=== PATIENT | female | born 1970 | race African-American/Black ===

== ENCOUNTER 2016-10-31 21:19 | Emergency (ER) | payer OTHER ==
[2016-10-31] MEDS ORDERED: NAPROXEN (21:31)
[2016-10-31] MEDS ORDERED: IBUPROFEN (21:32)
[2016-10-31 21:49] LABS: URINE SOURCE CLEAN CATCH
[2016-10-31 21:52] LABS: URINE APPEARANCE SL CLOUDY; URINE BILIRUBIN NEG (NEG); URINE BLOOD 3+ (NEG); URINE COLOR YELLOW; URINE GLUCOSE NEG (NORM); URINE KETONE TRACE (NEG); URINE LEUKOCYTE ESTERASE 3+ (NEG); URINE NITRATE POS (NEG); URINE PROTEIN 1+ (NEG); URINE SPECIFIC GRAVITY 1.015 (1.003-1.035)
[2016-10-31 21:55] LABS: MICRO INDICATED? YES
[2016-10-31 21:57] LABS: CULTURE INDICATED? YES; URINE BACTERIA 4+ (NEG); URINE RBC 100-200 /[HPF] (0-2); URINE SQUAMOUS EPITHELIAL CELL FEW /[HPF]; URINE WBC INNUM /[HPF] (0-5)
[2016-10-31 22:36] LABS: BASOPHIL% 0.1 % (0-2.5); EOSINOPHIL% 0.2 % (0.0-7.0); HEMATOCRIT 35.8 % (35.0-45.0); HEMOGLOBIN 11.6 gm/dL (12.0-16.0); LYMPHOCYTE# 0.7 X10e3 (1.0-3.5); LYMPHOCYTE% 10.2 % (17.0-45.0); MEAN CELL VOLUME 86.7 FL (83-96); MEAN CORPUSCULAR HEMOGLOBIN 28.2 PG (28-34); MEAN CORPUSCULAR HGB CONC 32.5 g/dL (30-36); MEAN PLATELET VOLUME 7.9 FL (6.5-11.5); MONOCYTE# 0.1 X10e3 (0-1.0); MONOCYTE% 1.3 % (3.0-12.0); NEUTROPHIL# 6.2 X10e3 (1.5-7.1); NEUTROPHIL% 88.2 % (40-75); PLATELET COUNT 227 X10e3 (140-420); RED BLOOD COUNT 4.13 X10e (3.90-5.30); RED CELL DISTRIBUTION WIDTH 13.7 % (11.0-15.5)
[2016-10-31 22:45] LABS: DIFF IND NO
[2016-10-31 23:02] LABS: ALBUMIN SERUM 4.4 g/dL (3.5-5.0); BILIRUBIN, DIRECT 0.1 mg/dL (0.0-0.2); BILIRUBIN,INDIRECT 0.7 mg/dL (0.0-0.9); BILIRUBIN,TOTAL 0.8 mg/dL (0.2-2.0); CALCIUM SERUM 9.1 mg/dL (8.4-10.2); GLOM FILT RATE Estimated 77.7 mL/min (>60); POTASSIUM 3.6 mmol/L (3.5-5.1); PROTEIN TOTAL SERUM 7.7 g/dL (6.0-8.3)
[2016-11-03 20:11] LABS: CHLAMYDIA TRACH Not Detected (Not Detected); N GONOR Not Detected (Not Detected)
== END 2016-10-31 23:32 | disposition home or self-care (01) ==
LOC: SED 21:19
PROVIDERS: Student in an Organized Health Care Education/Training Program
DX: N12 Tubulo-interstitial nephritis, not specified as acute or chronic (principal)
CPT/HCPCS: 36415; 80048; 80076; 81003; 84703; 85025; 87086; 87088; 87186; 87491; 87591; 87808; 87905; 96374; 96375; 99284; J0696; J1885; J2405

== ENCOUNTER 2016-11-07 19:42 | Emergency (ER) | payer OTHER ==
[~2016-11-07 19:42] MED LIST: IBUPROFEN; NAPROXEN
[2016-11-07] MEDS ORDERED: BACTRIM DS TAB1 EACH PO (20:01)
== END 2016-11-07 20:46 | disposition home or self-care (01) ==
LOC: SED 19:42
DX: R11.0 Nausea (principal); R51 Headache; T37.0X5A Adverse effect of sulfonamides, initial encounter; Z90.710 Acquired absence of both cervix and uterus; Z98.51 Tubal ligation status; Z88.2 Allergy status to sulfonamides
CPT/HCPCS: 96372; 99284; J0696

== ENCOUNTER 2016-11-17 15:25 | Emergency (ER) | payer OTHER ==
--- NOTE | ~2016-11-17 | CT4 ---
[facility] A Service of [facility] RADIOLOGY TEXT RESULTS PATIENT: DESIRAE BARLOW LOCATION: SED : 68 UNIT #: [id number] AGE: [address]: DONNIE ANTHONY SEX: F ORDER DR: [id number] [place] [id number] E MR#: [id number] #: [id number] NAME: DESIRAE BARLOW : 1970 SEX: F STUDY DATE/TIME: 11/17/2016 17:14 UNIT: SED ROOM: STUDY DESCRIPTION: CT Abd and Pelv Wo Cont Attending Physician: Donnie Anthony Ordering Physician: Donnie Anthony Primary Care Physician: No Primary Care Physician MEDICAL IMAGING REPORT This report is preliminary unless electronic signature is present. EXAM CT abdomen and pelvis without contrast 11/17/2016 HISTORY 46-year-old female with abdominal pain and hematuria for 3 weeks. COMPARISON None. TECHNIQUE Helical scan performed through the abdomen and pelvis without IV contrast. Coronal and sagittal reformatted images. This CT exam was performed with one or more of the following radiation dose reduction techniques: automatic control, adjustment of mA and/or kV according to patient size, and iterative reconstruction. FINDINGS Visualized lung bases are unremarkable. Multiple small hypoattenuating lesions throughout the liver, which are too small to characterize, but likely represent hepatic cysts. The spleen, pancreas, gallbladder, both adrenal glands, and both kidneys are within expected limits. No urinary tract stones or hydronephrosis. Abdominal aorta normal in course and caliber. Small bowel is unremarkable without obstruction. Appendix is normal. Colon unremarkable. Small fat-containing ventral abdominal wall hernia just above the umbilicus in the midline. No free fluid or free air. Urinary bladder unremarkable. Uterus surgically absent. No free pelvic fluid. No acute bony abnormality. IMPRESSION 1. No acute abdominal or pelvic findings. [facility] A Service [facility] RADIOLOGY TEXT RESULTS PATIENT: DESIRAE BARLOW LOCATION: SED : 68 UNIT #: [id number] AGE: [address]: DONNIE ANTHONY SEX: F ORDER DR: 2. Negative for urinary tract stones or hydronephrosis. 3. Normal appendix. 4. Hysterectomy. 5. Small fat-containing ventral abdominal wall hernia just above the umbilicus in the midline. Dictated by... Enio Benson M.D. THIS IS AN ELECTRONICALLY VERIFIED REPORT Enio Benson M.D. at 11/18/2016 9:59 AM [facility]/[place] TD: 11/18/2016 01:11 JOB #: [id number] MEDICAL IMAGING REPORT Page 1 of 1
[~2016-11-17 15:25] MED LIST changes: +BACTRIM DS TAB1 EACH PO
[2016-11-17] MEDS ORDERED: NO MEDICATIONS (15:38)
[2016-11-17 16:33] LABS: URINE SOURCE CLEAN CATCH
[2016-11-17 16:35] LABS: URINE APPEARANCE CLEAR; URINE BILIRUBIN NEG (NEG); URINE BLOOD 1+ (NEG); URINE COLOR YELLOW; URINE GLUCOSE NEG (NORM); URINE KETONE NEG (NEG); URINE LEUKOCYTE ESTERASE 1+ (NEG); URINE NITRATE NEG (NEG); URINE PROTEIN NEG (NEG); URINE SPECIFIC GRAVITY <=1.005 (1.003-1.035); URINE UROBILINOGEN 0.2 MG/DL (NORM)
[2016-11-17 16:38] LABS: MICRO INDICATED? YES
[2016-11-17 16:42] LABS: URINE BACTERIA NEG (NEG); URINE RBC 0-2 /[HPF] (0-2)
[2016-11-17 16:43] LABS: URINE SQUAMOUS EPITHELIAL CELL OCCAS /[HPF]
[2016-11-17 16:52] LABS: BASOPHIL% 0.4 % (0-2.5); EOSINOPHIL% 0.7 % (0.0-7.0); HEMATOCRIT 34.7 % (35.0-45.0); LYMPHOCYTE# 2.4 X10e3 (1.0-3.5); LYMPHOCYTE% 39.5 % (17.0-45.0); MEAN CELL VOLUME 85.7 FL (83-96); MEAN CORPUSCULAR HEMOGLOBIN 27.2 PG (28-34); MEAN CORPUSCULAR HGB CONC 31.8 g/dL (30-36); MEAN PLATELET VOLUME 7.9 FL (6.5-11.5); MONOCYTE# 0.5 X10e3 (0-1.0); NEUTROPHIL# 3.1 X10e3 (1.5-7.1); NEUTROPHIL% 51.4 % (40-75); PLATELET COUNT 328 X10e3 (140-420); RED BLOOD COUNT 4.05 X10e (3.90-5.30); RED CELL DISTRIBUTION WIDTH 13.7 % (11.0-15.5); WHITE BLOOD COUNT 5.9 X10e3 (4.0-10.5)
[2016-11-17 16:54] LABS: DIFF IND NO
[2016-11-17 17:09] LABS: ALBUMIN SERUM 3.9 g/dL (3.5-5.0); BILIRUBIN,TOTAL 0.3 mg/dL (0.2-2.0); BUN/CREATININE RATIO 10.9; CALCIUM SERUM 9.2 mg/dL (8.4-10.2); CREATININE SERUM 1.1 mg/dL (0.6-1.4); GLOM FILT RATE Estimated 69.3 mL/min (>60); POTASSIUM 3.7 mmol/L (3.5-5.1); PROTEIN TOTAL SERUM 7.6 g/dL (6.0-8.3)
[2016-11-17] MEDS ORDERED: MACROBID100 M1 DOB (19:20)
[2016-11-17] MEDS ORDERED: MOTRIN600 M1 PO (19:21)
== END 2016-11-17 19:21 | disposition home or self-care (01) ==
LOC: SED 15:25
PROVIDERS: Physician Assistant
DX: R10.84 Generalized abdominal pain (principal); R30.0 Dysuria; Z90.710 Acquired absence of both cervix and uterus; Z98.51 Tubal ligation status; Z88.2 Allergy status to sulfonamides; Z88.8 Allergy status to other drugs, medicaments and biological substances; Z79.899 Other long term (current) drug therapy
CPT/HCPCS: 36415; 74176; 80053; 81003; 84703; 85025; 87086; 99284